=== PATIENT | female | born 1960 | race Caucasian/White ===

== ENCOUNTER 2024-08-16 12:56 | Outpatient (AMB) | payer MEDICARE, MEDICAID, SELFPAY ==
--- NOTE | 2024-08-16 13:07 | HO.SPINEOV ---
Intake Visit Reasons: LBP Intake Note: Ms. Bella is here today c/o low back pain. MRI done @ [facility] (brought disc). 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 She is a very nice 64-year-old female presents for evaluation of chronic low back pain. She has had the pain going back to 2003 and it has only gotten steadily worse over the years. She had thoracic symptoms for awhile but then it transitioned into her lower back radiating into her hips. Right now the main pain she has is located along her beltline radiating into her buttocks in her hips. She underwent numerous rounds of conservative management at your facility including physical therapy, epidural injections and then underwent trial of a Sprint stimulator. She had it in for number of weeks she tells me and she had quite good success with it. She was going to get a permanent 1 installed but apparently something happened, she is not sure if it was with insurance company or whatever but she is referred down to us for implantation of it according to the referral. PMH: She has history of hypertension, history of diabetes but tells me her A1c last year was in the mid 5s, history of macular degeneration, COPD, seems fairly low-grade because she is only using an inhaler once a day and does not need home oxygen. Unfortunately she continues to smoke. She has had cataract surgery, partial hysterectomy, tubal ligation. Social hx: She smokes a pack a day, she takes marijuana gummy at night to help with sleep and does not use any alcohol Medications: Losartan, amlodipine, metformin, Tylenol, ibuprofen, Trelegy Allergies: No known drug allergies Physical exam: She is awake alert oriented very hard time staying in 1 position, constantly changing positions leaning against the wall. Strength and reflexes are normal. Imaging review: Lumbar MRI done at [facility] in July of this year shows severely collapsed disc at L2-3 L3-4 and L4-5 with Modic endplate changes throughout. She has Modic type 3 changes at the lower levels and Modic type 1 at the upper. No significant central canal stenosis. Impression: 64-year-old female with chronic low back pain, has undergone conservative management as outlined above and was referred down to us for evaluation of back pain and possible consideration of a sprint procedure. Dr. Gusman does not do that procedure but are interventional pain colleagues are very familiar with it and do it regularly. I will refer up to Dr. Abad. Consideration should also be made for possible intracept procedure as I think she would be a good candidate. He also does that as well. Thank you for allowing us to care for your patient. The total time spent with this visit with this patient was 45 minutes reviewing history, physical exam, lumbar imaging review, and implementation of treatment plan or further diagnostic testing Juliocesar Gusman MD,PhD [facility] Orders: Orders XR lumbar spine 4V min Today M54.9 - Dorsalgia, unspecified Referrals Pain Management Referral M54.9 - Dorsalgia, unspecified Coding Level of Care Code New Pt Level 4 (16717) Diagnoses Back pain M54.9
--- OUTSIDE RECORDS SUMMARY | 2024-08-16 13:58 | XMS_ITS | Data Portability ---
Author Organization [place] - [facility], Allergy Address [address] [address] Care Team Providers [employer] Name Role Phone BENNY RAMIREZ Primary Care Provider [phone] Assessment No assessment recorded. Plan of Treatment Reminders Order Date Submit Date Provider Last Modified By Organization Details Last Modified Time Details Appointments Establish ed 30 2024 01:00P M JEANE Malagon MD Not available Not available Not available Lab None recorded. Referral None recorded. Procedures None recorded. Surgeries None recorded. Imaging None recorded. Medication Orders None recorded. Patient TargetsNo targets recorded. Patient InstructionsNo instructions recorded. Reason for Referral None Reported. Problems Name Problem SNOMED Code Status Onset Date Resolution Date Notes Provider Name and Address Organization Details Recorded Time Sensorine ural hearing loss of bilateral ears 170640933 Active 2022 Sensorine ural hearing loss, bilateral ; Note: Date Diagnosed : 07/04/2022 3:58 PM (H90.3) Not Available [facility] 4 02:14:02 Bilateral tinnitus 50384658340 02 Active 2022 Tinnitus, bilateral ; Note: Date Diagnosed : 07/04/2022 3:58 PM (H93.13) Not Available [facility] 4 02:13:45 Chronic hoarsenes s 84935203662 05 Active 2023 JEANE MITTAL MD [address] [place] [address], [place], [address] , [facility] - [facility] 4 15:44:28 Lilliana's edema 019350277 Active 2023 JEANE MITTAL MD [address] [place] [address],[place] [address], [place], [phone] , [facility] - [facility] 4 15:52:19 Smoker 25131174 Active 2023 JEANE MITTAL MD [address] [place] [address], [facility] [place], [address] , [facility] - [facility] 4 15:52:44 Problem Notes None recorded. Procedures Surgical History Date Name Laterality Status Provider Name and Address Organization Details Recorded Time 06/21/2024 FFL_RE completed JEANE MITTAL MD [address] [place] [address], [place], [address], [facility] - [facility] 06/21/2024 14:44:34 12/22/2023 FFL_RE completed JEANE MITTAL MD [address] [place] [address], [phone], [facility] 12/22/2023 15:52:06 Imaging Results None recorded. Procedure Notes None recorded. Medical Equipment None Reported. Allergies Allergen ID Allergen Name Allergen Category Reaction Reaction Severity Criticality Documentation Date Start Date Code Code System Note Provider Name and Address Organization Details Recorded Time 09272 Product containin g angiotens in-conver ting enzyme inhibitor (product) medicatio n Not available Not available Not available 07/29/2023 45698 009 SNOMED React ion: swell ing ankle s; Not Available [facility] 4 00:48:34 Medications Name Sig Start Date Stop Date Status Note LastModified by Organization Details LastModified Time metformin 500 mg tablet TAKE ONE TABLET BY MOUTH TWICE A DAY active Not Available Not Available No t Available prednisone 10 mg tablet TAKE 4 TABLETS 40 MG TOTAL) BY MOUTH DAILY WITH BREAKFAST FOR 2 DAYS, THEN 3 TABLETS 30 MG TOTAL) DAILY WITH BREAKFAST FOR 2 DAYS, THEN 2 active Not Available Not Available No t Available acetazolamide ER 500 mg capsule,exten ded release TAKE ONE CAPSULE BY MOUTH AT BEDTIME AND IN THE MORNING. active Not Available Not Available No t Available nicotine (polacrilex) [address] EACH 2 MG TOTAL) INSIDE CHEEK EVERY 30 THIRTY) MINUTES NEEDED FOR SMOKING CESSATION MAX 20 PIECES PER DAY) CHEW SLOWLY UNTIL I active Not Available Not Available No t Available ketorolac 0.5 % eye drops INSTILL ONE DROP INTO THE AFFECTED EYE 3 TIMES A DAY STARTING 2 DAYS BEFORE SURGERY active Not Available Not Available No t Available amlodipine 10 mg tablet TAKE ONE TABLET BY MOUTH EVERY DAY active Not Available Not Available No t Available losartan 25 mg tablet TAKE 1 TABLET BY MOUTH ONCE DAILY active Not Available Not Available No t Available nicotine 21 mg/[address] 1 PATCH ONTO THE SKIN DAILY IF INSOMNIA REMOVE AT BEDTIME active Not Available Not Available No t Available cefuroxime axetil 500 mg tablet TAKE ONE TABLET BY MOUTH TWICE A DAY FOR 2 DAYS active Not Available Not Available No t Available clotrimazole 1 % topical cream APPLY TO AFFECTED AREA S) TOPICALLY TWO TIMES A DAY active Not Available Not Available No t Available Ventolin HFA 90 mcg/actuation aerosol inhaler INHALE 2 PUFFS INTO THE LUNGS EVERY 4 HOURS NEEDED FOR WHEEZING OR FOR SHORTNESS OF BREATH active Not Available Not Available No t Available Advair HFA 230 mcg-21 mcg/actuation aerosol inhaler INHALE TWO PUFFS BY MOUTH TWICE A DAY active Not Available Not Available No t Available guaifenesin ER 600 mg tablet, extended release 12 hr TAKE TWO TABLETS BY MOUTH TWICE A DAY active Not Available Not Available No t Available Trelegy Ellipta 100 mcg-62.5 mcg-25 mcg powder for inhalation INHALE ONE PUFF BY MOUTH EVERY DAY active Not Available Not Available No t Available Vitals Date Recorded Body height Body mass index (BMI) Body weight Provider Name and Address Organization Details Last Updated DateTime 06/21/2024 152.4 cm 32 kg/m2 30457.15 [facility] 06/21/2024 14:27:06 Date Recorded Body height Body mass index (BMI) Body weight Provider Name and Address Organization Details Last Updated DateTime 12/22/2023 152.4 cm 32 kg/m2 41229.15 [facility] 12/22/2023 15:26:17 Social History None recorded. Functional Status None recorded. Mental Status None recorded. Family History Nothing Reported. Medical History No medical history recorded. Gynecological HistoryNo gynecological history recorded. Obstetrics History GPAL:G 0 P 0 0 0 0 Past Encounters Encounter ID Performer Location Encounter Start Date Encounter Closed Date Diagnosis/Indication Diagnosis SNOMED-CT Code Diagnosis ICD10 Code Diagnosis Note [id number] JEANE MITTAL MD [facility] on [address] [place] [address], [place] [address] 12/22/2023 15:02:17 12/22/2023 15:51:07 Chronic hoarseness 8087933429 105 R49.0 see below Lilliana's edema 083845624 J38.4 Laryngosco py was notable for Lilliana's edema. I discussed the associatio n with smoking. No concerning lesions. I discussed malignant degenerati on if she continues smoking. Will reassess in 6 months. Smoker 11785109 F17.200 discussed smoking cessation [id number] JEANE MITTAL MD [facility] on [address] [place] [address], [place] [address] 06/21/2024 14:21:47 06/21/2024 14:54:50 Chronic hoarseness 6095660652 105 R49.0 see below Lilliana's edema 034126196 J38.4 Laryngosco py was notable for Lilliana's edema. I discussed the associatio n with smoking. No concerning lesions. I discussed malignant degenerati on if she continues smoking. Will reassess in 6 months. Smoker 53279996 F17.200 discussed smoking cessation Health Concerns Section Related Observation LastModified by Organization Detai ls LastModified Time None Recorded Concern Status LastModified by Organization Details LastModified Time None Recorded Advance Directives Directive None Recorded Payers Insurance Date Sequence Insurance Name Policy Number Policy Davila Covered Member ID Davila Member ID Guarantor Name 06/23/2024 2 [place] [facility] Taylor Bella [id number] Taylor Bella 06/21/2024 1 [facility] (MEDICARE REPLACEMENT/A DVANTAGE - PPO) [id number] Taylor Bella [id number] Taylor Bella Notes Date Note Type Note Provider Name and Address Organization Details Recorded Time 12/22/2023 text/html She has a history of hoarseness. She is a heavy smoker. Her voice has been hoarse for several years. It is better than it used to be since she cut out red wine. She denies trouble breathing. Does have JUSTIN wears CPAP at night. Uses Trilogy for COPD. No throat pain. JEANE MITTAL MD [address] [place] [address], [phone], [facility] 12/22/2023 15:53:47 06/21/2024 text/html She has a history of hoarseness. She is a heavy smoker. She is trying to cut back. Her voice has been hoarse for several years. She denies changes since the last visit. She denies trouble breathing. Does have JUSTIN wears CPAP at night. Uses Trilogy for COPD. No throat pain. JEANE MITTAL MD [address] [place] [address] [address], [place], [phone], [facility] 06/21/2024 14:58:41 OBGyn Episode No OBEpisode recorded.
== END 2024-08-16 13:52 | disposition home or self-care (01) ==
LOC: HO.HNS 12:57
PROVIDERS: PCP Family Medicine; Visit Provider Physician Assistant
DX: M54.9 Dorsalgia, unspecified (principal)
CPT/HCPCS: 99204

== ENCOUNTER 2024-08-16 12:56 | Outpatient (REF) | payer MEDICARE, MEDICAID, SELFPAY ==
--- NOTE | ~2024-08-16 | XR_ITS ---
CLINICAL HISTORY: M54.9 - Dorsalgia, unspecified --- Additional Notes or Special Instructions: wilson darden p, lateral with flex ext views 4 views lumbar spine Comparison: None Findings: Dextroscoliosis. Multilevel degenerative changes of the lumbar spine with narrowing of the intervertebral disc space and osteophytes. No instability on the flexion and extension images. IMPRESSION: No acute findings. This document has been electronically signed by: Mars Triana MD on 08/17/2024 15:53:31
== END 2024-08-16 12:57 | disposition home or self-care (01) ==
LOC: HO.HOSX 12:56
PROVIDERS: PCP Family Medicine; Visit Provider Physician Assistant
DX: M54.50 Low back pain, unspecified (principal); G89.29 Other chronic pain
CPT/HCPCS: 72110; 99202

== ENCOUNTER → 2024-08-16 14:06 | Outpatient (BNV) | payer MEDICARE, MEDICAID, SELFPAY | PROVIDERS: PCP Family Medicine; Visit Provider Nuclear Medicine | DX: M54.9 Dorsalgia, unspecified (principal) | CPT/HCPCS: 72110 ==

== ENCOUNTER 2024-08-30 11:52 | Outpatient (AMB) | payer MEDICARE, MEDICAID, SELFPAY ==
[2024-08-30 11:54] VITALS: BP 155/77; PULSE 88; RESP 16; O2SAT 93; BMI 31.6
--- NOTE | 2024-08-30 11:54 | MHC.OFFVIS ---
Vital Signs 08/30/24 11:54 Height 5 ft Weight 162 lb BMI 31.6 BP 155/77 H Blood Pressure Location Lt brachial Position Sitting Respiration 16 Pulse 88 Pulse Source Pulse Oximeter Pulse Oximetry (%) 93 Oxygen Delivery Method Room Air Intake Visit Reasons: Dorsalgia Community Health Promoter Required: No Accompanied by: Self / Same As Patient Allergies No Known Allergies (No Known Allergies*) Allergy (Verified 08/30/24 11:58) HPI HPI Dorsalgia: Details: History of Present Illness The patient is a 64-year-old female presenting with management of chronic low back pain. The pain originated over 21 years ago and has intensified, particularly over the last two years. It is primarily located along the beltline and radiates into the buttocks and hips, more severely affecting the right side compared to the left, which also experiences a permanent numbness. Past interventions have provided limited relief, including physical therapy, epidural injections, and a Sprint stimulator. The condition affects the patient?s daily function, limiting her ability to conduct rn disease management and walk her dogs without subsequent exacerbation of pain. Secondary issues include spinal stenosis, lumbar disc degeneration, endplate edema, and arthritis, which are contributing to her pain presentation. Insurance considerations have altered her treatment pathways, leading to her current visit following her previous provider's cessation of procedures due to reimbursement issues. Pain Description - Pain onset: Over 21 years ago, worsening over the past two years. - Quality: Chronic, exacerbated with movement or prolonged activity. - Location: Lower back along the beltline, radiating to buttocks and hips. - Radiation: Primarily into buttocks and hips, more severe on the right side. - Exacerbating factors: Sitting for prolonged periods, sweeping, mopping, vacuuming, and walking. - Relieving factors: Previously episodic relief with Sprint stimulator. - Impact: Significant limitation in daily activities, such as rn disease management and walking. Physical Exam - Appears afebrile. - Alert and oriented. - Mood and affect appropriate. - Follows and participates in conversation appropriately. - Respiratory effort is unlabored. - Able to transition from sit to stand unassisted. - Limited lumbar ROM - Extensio/flexion both produce discomfort Results - MRI findings showing lumbar disc degeneration and endplate edema/modic changes. Pain Management - Affect: Pain has resulted in a reduction of ability to perform daily activities, causing distress. - Analgesia: Previous relief with Sprint stimulator, current pain level obscure but seen increase without treatment. - Adverse Effects: No specific adverse effects from prior Sprint stimulator were discussed. - Activities of Daily Living: Affected ability to engage in sweeping, mopping, and prolonged walking. - Aberrant Drug Related Behaviors: None reported or discussed. Physical Exam Vital Signs: Last Vital Signs Pulse 88 08/30/24 11:54 Resp 16 08/30/24 11:54 BP 155/77 H 08/30/24 11:54 Pulse Ox 93 08/30/24 11:54 Oxygen Delivery Method Room Air 08/30/24 11:54 BMI result Body Mass Index 31.6 Assessment & Plan Assessment & Plan (1) Chronic pain: Code(s): G89.29 - Other chronic pain Category: Medical (2) Lumbar spondylosis: Code(s): M47.816 - Spondylosis without myelopathy or radiculopathy, lumbar region Category: Medical Plan Plan - Proceed with obtaining insurance authorization for right L3 medial branch nerve stimulator for chronic low back pain; previously had excellent response in pain relief from PNS therapy for >1 year. Left side two weeks later. - Provide patient educational materials on endplate edema treatment. - Plan procedure scheduling post-insurance approval. - Monitor response to potential new therapies if current interventions become inadequate. Patient was informed and verbally consented to the use of an ambient scribe for clinic note documentation during this visit. Discussion Notes During the visit, I discussed with the patient the potential for using a Sprint stimulator once more for her chronic low back pain, given its previous success. We reviewed lumbar MRI results indicating disc degeneration and endplate edema, and discussed possible future interventions should symptoms persist or the Sprint procedure not offer lasting relief. I informed the patient about insurance authorization being a necessary step before proceeding and provided educational materials for another possible procedure targeting endplate edema. The patient was advised to remain optimistic about reattempting the Sprint procedure, and it was conveyed that insurance approval will propel scheduling. Patient Instructions - Await contact for insurance approval regarding the Sprint PNS stimulator procedure. - Review provided brochure on endplate edema treatment. - Avoid activities that exacerbate pain when possible. - Continue any previously advised pain management strategies until further scheduled treatment. - Contact us if there is any change in pain levels or new symptoms develop. Coding Level of Care Code New Pt Level 4 (73927) Diagnoses Chronic pain G89.29 Lumbar spondylosis M47.816
--- OUTSIDE RECORDS SUMMARY | 2024-08-30 13:25 | XMS_ITS | Data Portability ---
Author Organization [place] - 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 Plan of Treatment [...] Sensorine ural hearing loss of bilateral ears [id number] Active 2022 Sensorine ural hearing loss, bilateral ; Note: Date Diagnosed : 07/04/2022 3:58 PM (H90.3) Not Available [facility] 4 02:14:02 Bilateral tinnitus [id number] 02 Active 2022 Tinnitus, bilateral ; Note: Date Diagnosed : 07/04/2022 3:58 PM (H93.13) Not Available [facility] 4 02:13:45 Chronic hoarsenes s 35206118728 05 Active 2023 JEANE MITTAL MD [address] [place] [address],[place] [address], [place], [phone] , [facility] - [facility] 4 15:44:28 Lilliana's edema 299731481 Active 2023 JEANE MITTAL MD [address] [place] [address],[place] [address], [place], [phone] , [facility] - [facility] 4 15:52:19 Smoker 06853200 Active 2023 JEANE MITTAL MD [address] [place] [address], [place], [phone] , [facility] - [facility] 4 15:52:44 Problem Notes None recorded. Procedures Surgical History Date Name Laterality Status Provider Name and Address Organization Details Recorded Time 06/21/2024 FFL_RE completed JEANE MITTAL MD [address] [place] [address], [place], [phone], [facility] - [facility] 06/21/2024 14:44:34 12/22/2023 FFL_RE completed JEANE MITTAL MD [address] [place] [address], [phone], [facility] 12/22/2023 15:52:06 Imaging Results None recorded. Procedure Notes None recorded. Medical Equipment None Reported. Allergies Allergen ID Allergen Name Allergen Category Reaction Reaction Severity Criticality Documentation Date Start Date Code Code System Note Provider Name and Address Organization Details Recorded Time 50794 Product containin g angiotens in-conver ting enzyme inhibitor (product) medicatio n Not available Not available Not available 07/29/2023 55703 009 SNOMED React ion: swell ing ankle s; Not Available [facility] 4 00:48:34 Medications Name Sig Start Date [...] Updated DateTime 06/21/2024 152.4 cm 32 kg/m2 56690.15 [facility] 06/21/2024 14:27:06 Date Recorded Body height Body mass index (BMI) Body weight Provider Name and Address Organization Details Last Updated DateTime 12/22/2023 152.4 cm 32 kg/m2 96244.15 g [facility] 12/22/2023 15:26:17 Social History None recorded. Functional Status None recorded. Mental Status None recorded. Family History Nothing Reported. Medical History No medical history recorded. Gynecological HistoryNo gynecological history recorded. Obstetrics History GPAL:G 0 P 0 0 0 0 Past Encounters Encounter ID Performer Location Encounter Start Date Encounter Closed Date Diagnosis/Indication Diagnosis SNOMED-CT Code Diagnosis ICD10 Code Diagnosis Note [id number] JEANE MITTAL MD [facility], [facility] on [address] [place] [address], [place] [address] 12/22/2023 15:02:17 12/22/2023 15:51:07 Chronic hoarseness 7131895771 105 R49.0 see below Lilliana's edema 653578734 J38.4 Laryngosco py was notable for Lilliana's edema. I discussed the associatio n with smoking. No concerning lesions. I discussed malignant degenerati on if she continues smoking. Will reassess in 6 months. Smoker 56112138 F17.200 discussed smoking cessation [id number] JEANE MITTAL MD [facility], [facility] on [address] [place] [address], [place] [address] 06/21/2024 14:21:47 06/21/2024 14:54:50 Chronic hoarseness 4775513925 105 R49.0 see below Lilliana's edema 619771795 J38.4 Laryngosco py was notable for Lilliana's edema. I discussed the associatio n with smoking. No concerning lesions. I discussed malignant degenerati on if she continues smoking. Will reassess in 6 months. Smoker 21376105 F17.200 discussed smoking cessation Health Concerns Section Related Observation LastModified by Organization Detai ls LastModified Time None Recorded Concern Status LastModified by Organization Details LastModified Time None Recorded Advance Directives Directive None Recorded Payers Insurance Date Sequence Insurance Name Policy Number Policy Davila Covered Member ID Davila Member ID Guarantor Name 06/23/2024 2 [place] [facility] Taylor Bella [id number] Taylor Bella 06/21/2024 1 [facility] (MEDICARE REPLACEMENT/A DVANTAGE - PPO) [id number] Taylor Bella [id number] Taylor Bella Notes Date Note Type Note [...] COPD. No throat pain. JEANE MITTAL MD [address] [place] [address], [phone], [facility] - [facility] 12/22/2023 15:53:47 06/21/2024 text/html She has a history of hoarseness. She is a heavy smoker. She is trying to cut back. Her voice has been hoarse for several years. She denies changes since the last visit. She denies trouble breathing. Does have JUSTIN wears CPAP at night. Uses Trilogy for COPD. No throat pain. JEANE MITTAL MD [address] [place] [address] [address], [place], [phone], [facility] - [facility] 06/21/2024 14:58:41 OBGyn Episode No OBEpisode recorded.
== END 2024-08-30 12:56 | disposition home or self-care (01) ==
LOC: HO.PMC 11:53
PROVIDERS: PCP Family Medicine; Referring Provider Physician Assistant; Visit Provider Internal Medicine
DX: G89.29 Other chronic pain (principal); M47.816 Spondylosis without myelopathy or radiculopathy, lumbar region
CPT/HCPCS: 99204

== ENCOUNTER → 2024-08-30 11:52 | Outpatient (BNVA) | payer MEDICARE, MEDICAID, SELFPAY | PROVIDERS: PCP Family Medicine; Referring Provider Physician Assistant; Visit Provider Internal Medicine | DX: M47.816 Spondylosis without myelopathy or radiculopathy, lumbar region (principal); G89.29 Other chronic pain | CPT/HCPCS: 99202 ==

== ENCOUNTER 2024-10-14 06:30 | Outpatient (REF) | payer MEDICARE, MEDICAID, SELFPAY ==
--- NOTE | ~2024-10-14 | FL_ITS ---
EXAMINATION: FL GUIDANCE ONLY HISTORY: M47.816 - Spondylosis without myelopathy or radiculopathy, lumbar region COMPARISON: None available. TECHNIQUE: Fluoroscopy time: 0.2 minutes. Cumulative Dose: 7.68 mGy. DAP: 0.114 mGym2 Images: 3. FINDINGS: Fluoroscopic spot films of the lumbar spine demonstrate an electrode in place. FL/FL guidance in treatment room IMPRESSION: Fluoroscopy during procedure. Please see procedure report for additional information. Electronically signed by: Antolin Crabtree MD 10/14/2024 03:34 PM EDT
== END 2024-10-14 06:31 | disposition home or self-care (01) ==
LOC: CF 06:30
PROVIDERS: Visit Provider Internal Medicine
DX: M47.816 Spondylosis without myelopathy or radiculopathy, lumbar region (principal); G89.29 Other chronic pain
CPT/HCPCS: 64555; C1778; J2003

== ENCOUNTER 2024-10-14 13:04 | Outpatient (AMB) | payer MEDICARE, MEDICAID, SELFPAY ==
[2024-10-14 13:11] VITALS: BP 149/85; PULSE 96; RESP 16; O2SAT 97; BMI 31.6
--- NOTE | 2024-10-14 13:11 | A.OFFVIS_ITS ---
Vital Signs 10/14/24 13:11 10/14/24 14:55 Height 5 ft 5 ft Weight 162 lb 162 lb BMI 31.6 31.6 BP 149/85 H 145/86 H Blood Pressure Location Lt brachial Lt brachial Position Sitting Sitting Respiration 16 16 Pulse 96 74 Pulse Source Pulse Oximeter Pulse Oximeter Pulse Oximetry (%) 97 97 Oxygen Delivery Method Room Air Room Air Intake Visit Reasons: Left L3 Sprint Allergies No Known Allergies (No Known Allergies*) Allergy (Verified 08/30/24 11:58) HPI HPI Left L3 Sprint: Details: Patient presents for scheduled procedure. Denies any recent cough, cold, infection, fever or other significant changes in medical history since last office visit. Physical Exam Vital Signs: Last Vital Signs Pulse 74 10/14/24 14:55 Resp 16 10/14/24 14:55 BP 145/86 H 10/14/24 14:55 Pulse Ox 97 10/14/24 14:55 Oxygen Delivery Method Room Air 10/14/24 14:55 BMI result Body Mass Index 31.6 Office Procedures Details: Lumbar Medial Branch Nerve Stimulation Lead Placement, SPR (Sprint) System, Left L3 ? After the risks, benefits and alternatives were discussed with the patient and informed consent was obtained, patient was placed in the prone position and padded to foster comfort. The skin overlying the lumbosacral spine was prepped and draped in sterile fashion. Fluoroscopy was used to identify the spinous process and lamina in the center of the patient?s region of pain. After identifying and marking the intended target along the course of the medial branch nerve, the skin around the planned entry point and the subcutaneous t issues were injected with lidocaine 1%. An introducer needle and stimulating probe were assembled, inserted and advanced along the intended course of the medial branch nerve as it traverses the lamina medial and inferior to the zygapophyseal joint, taking care to maintain the proper depth of insertion as the introducer is advanced under fluoroscopic guidance. The introducer needle was delivered to a location in proximity to the nerve. Multiple stimulation parameters were used to deliver stimulation to the target medial branch nerve in concert with stimulating at multiple positions around the nerve. Nerve target acquisition was confirmed noting generation of paresthesias in the paravertebral regions corresponding to the level being stimulated. Various electrical parameter combinations were tested, and the lead location was adjusted (physically relocated) until the patient indicated paresthesia/muscle tension overlapping the distribution of the patient?s typical region of pain. The stimulating probe was removed from the introducer and a percutaneous lead was guided through the needle and delivered to a location in similar proximity to the nerve. Final location was verified with electrical stimulation and documented with fluoroscopy. The introducer needle was removed, and the exposed end of the percutaneous lead was attached to an external stimulator unit. Various electrical parameter combinations were again tested until the patient indicated paresthesia or muscle tension overlapping the distribution of the patient?s typical region of pain. After confirming that lead impedance was in the normal range, the external unit was detached, the needle was removed, and the lead was anchored at the skin. The lead was threaded into the connector block and electrical continuity and desired patient response was confirmed. The connector block was attached to the external stimulator unit. The site was covered with a sterile occlusive dressing. The patient was observed for stability of vital signs and comfort. Sprint PNS Device: Sprint PNS Device [id number] Percutaneous Peripheral Neuroelectrode Procedure: 98825 - Percutaneous Peripheral Neuroelectrode Procedure code (CPT) selection complete Office Meds lidocaine HCl 10 mg/mL (1 %) injection solution Performing Provider: Ashly Leung APRN, EMILY Performing Location: [facility] Administered by: Eric Abad MD on 10/19/24 15:41 Dose Route Admin Location Dispensed Lot Number Expiration Date [facility] Game Author 5 mL subcut 5 mL Total Dispensed Waste 5 mL 0 % Assessment & Plan Assessment & Plan (1) Chronic pain: Code(s): G89.29 - Other chronic pain Category: Medical (2) Lumbar spondylosis: Code(s): M47.816 - Spondylosis without myelopathy or radiculopathy, lumbar region Category: Medical Plan Patient is status post left L3 medial branch temporary nerve stimulator placement. Patient tolerated procedure well and was discharged home in stable condition with discharge instructions. All questions were answered. We will follow-up via telephone or in clinic to assess response to therapy. A follow-up appointment was made during today's visit. Orders: Orders AMB Sprint PNS 10/14/24 M47.816 - Spondylosis without myelopathy or radiculopathy, lumbar region FL guidance in treatment room 10/14/24 M47.816 - Spondylosis without myelopathy or radiculopathy, lumbar region Coding Level of Care Code Procedure Only Diagnoses Chronic pain G89.29 Lumbar spondylosis M47.816 CPT Codes Sprint PNS - Sprint PNS Device: Sprint PNS Device ([id number]) Sprint PNS - SPRINT: 08711 - Percutaneous Peripheral Neuroelectrode ([id number]) Implantable Device Implantable Device Implantable Devices Qty Game Author Implant Date Expiration Date Analgesic PENS system 1 [employer] 10/14/24
[2024-10-14 14:55] VITALS: BP 145/86; PULSE 74; RESP 16; O2SAT 97; BMI 31.6
== END 2024-10-14 15:18 | disposition home or self-care (01) ==
LOC: HO.PMCPRC 13:04
PROVIDERS: PCP Family Medicine; Visit Provider Internal Medicine
DX: G89.29 Other chronic pain (principal); M47.816 Spondylosis without myelopathy or radiculopathy, lumbar region
CPT/HCPCS: 64555

== ENCOUNTER 2024-10-20 10:27 | Outpatient (AMB) | payer MEDICARE, MEDICAID, SELFPAY ==
--- NOTE | 2024-10-20 10:28 | MHC.OFFVIS ---
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 She reports mixed results with the device, noting some reduction in pain but still experiencing discomfort, particularly in the mornings. The patient acknowledges that it is still early in the treatment process and remains hopeful for further improvement. Pain Description - Onset: Post-procedure - Quality: Mixed results with some reduction in pain - Timing: Particularly noticeable in the mornings - Exacerbating factors: Early stage of treatment - Relieving factors: Hope for improvement over time Physical Exam - Musculoskeletal: Lead insertion site intact Results Pain Management - Affect: Patient remains hopeful for improvement - Analgesia: Mixed results with some reduction in pain - Activities of Daily Living: Pain noticeable in the mornings Physical Exam Vital Signs: Last Vital Signs Pulse 94 10/20/24 10:30 Resp 15 10/20/24 10:30 BP 138/78 10/20/24 10:30 Pulse Ox 95 10/20/24 10:30 Oxygen Delivery Method Room Air 10/20/24 10:30 BMI result Body Mass Index 32.6 Assessment & Plan Assessment & Plan (1) Chronic pain: Code(s): G89.29 - Other chronic pain Category: Medical (2) Lumbar spondylosis: Code(s): M47.816 - Spondylosis without myelopathy or radiculopathy, lumbar region Category: Medical Plan Plan - Follow-up planned for right-sided placement next week. Patient was informed and verbally consented to the use of an ambient scribe for clinic note documentation during this visit. Discussion Notes I discussed with the patient the expected outcomes of the left L3 medial branch stimulator and the potential for improvement over time. We also talked about the upcoming right-sided placement and its anticipated benefits. Patient Instructions - Monitor pain levels and note any changes. - Follow up next week for right-sided placement. Coding Level of Care Code Est Pt Level 3 (26173) Diagnoses Chronic pain G89.29 Lumbar spondylosis M47.816
[2024-10-20 10:30] VITALS: BP 138/78; PULSE 94; RESP 15; O2SAT 95; BMI 32.6
== END 2024-10-20 10:52 | disposition home or self-care (01) ==
LOC: HO.PMC 10:27
PROVIDERS: PCP Family Medicine; Visit Provider Internal Medicine
DX: G89.29 Other chronic pain (principal); M47.816 Spondylosis without myelopathy or radiculopathy, lumbar region
CPT/HCPCS: 99024

== ENCOUNTER → 2024-10-20 10:27 | Outpatient (BNVA) | payer MEDICARE, MEDICAID, SELFPAY | PROVIDERS: PCP Family Medicine; Visit Provider Internal Medicine | DX: Z48.811 Encounter for surgical aftercare following surgery on the nervous system (principal); Z96.82 Presence of neurostimulator; G89.29 Other chronic pain; M47.816 Spondylosis without myelopathy or radiculopathy, lumbar region | CPT/HCPCS: 99212 ==

== ENCOUNTER 2024-10-28 07:36 | Outpatient (REF) | payer MEDICARE, OTHER, SELFPAY ==
--- NOTE | ~2024-10-28 | FL_ITS ---
EXAMINATION: FL GUIDANCE ONLY HISTORY: M47.816 - Spondylosis without myelopathy or radiculopathy, lumbar region COMPARISON: None available. TECHNIQUE: Fluoroscopy time: 0.3 minutes. Cumulative Dose: 4.01 mGy. DAP: 0.534 mGym2 Images: 2. FINDINGS: Fluoroscopic spot films of the lumbar spine demonstrate electrodes in place bilaterally. FL/FL guidance in treatment room IMPRESSION: Fluoroscopy during procedure. Please see procedure report for additional information. Electronically signed by: Antolin Crabtree MD 10/28/2024 03:45 PM EDT
== END 2024-10-28 07:37 | disposition home or self-care (01) ==
LOC: CF 07:36
PROVIDERS: Visit Provider Internal Medicine
DX: M47.816 Spondylosis without myelopathy or radiculopathy, lumbar region (principal); M54.9 Dorsalgia, unspecified; G89.29 Other chronic pain
CPT/HCPCS: 64555; 64590; C1778; J2003

== ENCOUNTER 2024-10-28 12:55 | Outpatient (AMB) | payer MEDICARE, MEDICAID, SELFPAY ==
--- NOTE | 2024-10-28 13:00 | A.OFFVIS_ITS ---
Vital Signs 10/28/24 13:06 10/28/24 13:37 Height 5 ft Weight 167 lb BMI 32.6 BP 140/79 H 152/79 H Blood Pressure Location Lt brachial Lt brachial Position Sitting Sitting Respiration 16 16 Pulse 90 83 Pulse Source Pulse Oximeter Pulse Oximeter Pulse Oximetry (%) 93 98 Oxygen Delivery Method Room Air Room Air Intake Visit Reasons: Right L3 Sprint Allergies No Known Allergies (No Known Allergies*) Allergy (Verified 10/20/24 10:33) HPI HPI Right L3 Sprint: Details: Patient presents for scheduled procedure. Denies any recent cough, cold, infection, fever or other significant changes in medical history since last office visit. Physical Exam Vital Signs: Last Vital Signs Pulse 83 10/28/24 13:37 Resp 16 10/28/24 13:37 BP 152/79 H 10/28/24 13:37 Pulse Ox 98 10/28/24 13:37 Oxygen Delivery Method Room Air 10/28/24 13:37 BMI result Body Mass Index 32.6 Office Procedures Details: Lumbar Medial Branch Nerve Stimulation Lead Placement, SPR (Sprint) System, Right L5 ? After the risks, benefits and alternatives were discussed with the patient and informed consent was obtained, patient was placed in the prone position and padded to foster comfort. The skin overlying the lumbosacral spine was prepped and draped in sterile fashion. Fluoroscopy was used to identify the spinous process and lamina in the center of the patient?s region of pain. After identifying and marking the intended target along the course of the medial branch nerve, the skin around the planned entry point and the subcutaneous tissues were injected with lidocaine 1%. An introducer needle and stimulating probe were assembled, inserted and advanced along the intended course of the medial branch nerve as it traverses the lamina medial and inferior to the zygapophyseal joint, taking care to maintain the proper depth of insertion as the introducer is advanced under fluoroscopic guidance. The introducer needle was delivered to a location in proximity to the nerve. Multiple stimulation parameters were used to deliver stimulation to the target medial branch nerve in concert with stimulating at multiple positions around the nerve. Nerve target acquisition was confirmed noting generation of paresthesias in the paravertebral regions corresponding to the level being stimulated. Various electrical parameter combinations were tested, and the lead location was adjusted (physically relocated) until the patient indicated paresthesia/muscle tension overlapping the distribution of the patient?s typical region of pain. The stimulating probe was removed from the introducer and a percutaneous lead was guided through the needle and delivered to a location in similar proximity to the nerve. Final location was verified with electrical stimulation and documented with fluoroscopy. The introducer needle was removed, and the exposed end of the percutaneous lead was attached to an external stimulator unit. Various electrical parameter comb inations were again tested until the patient indicated paresthesia or muscle tension overlapping the distribution of the patient?s typical region of pain. After confirming that lead impedance was in the normal range, the external unit was detached, the needle was removed, and the lead was anchored at the skin. The lead was threaded into the connector block and electrical continuity and desired patient response was confirmed. The connector block was attached to the external stimulator unit. The site was covered with a sterile occlusive dressing. The patient was observed for stability of vital signs and comfort. Sprint PNS Device: Sprint PNS Device [id number] Percutaneous Peripheral Neuroelectrode Procedure: 12341 - Percutaneous Peripheral Neuroelectrode Procedure code (CPT) selection complete Office Meds lidocaine HCl 10 mg/mL (1 %) injection solution Performing Provider: Eric Abad MD Performing Location: [facility] Administered by: Eric Abad MD on 10/28/24 13:00 Dose Route Admin Location Dispensed Lot Number Expiration Date [facility] Yard Hand 5 mL subcut 5 mL Total Dispensed Waste 5 mL 0 % Assessment & Plan Assessment & Plan (1) Chronic pain: Code(s): G89.29 - Other chronic pain Category: Medical (2) Lumbar spondylosis: Code(s): M47.816 - Spondylosis without myelopathy or radiculopathy, lumbar region Category: Medical Plan Patient is status post right L3 medial branch temporary nerve stimulator placement. Patient tolerated procedure well and was discharged home in stable condition with discharge instructions. All questions were answered. We will follow-up via telephone or in clinic to assess response to therapy. A follow-up appointment was made during today's visit. Orders: Orders FL guidance in treatment room Today M47.816 - Spondylosis without myelopathy or radiculopathy, lumbar region, M54.9 - Dorsalgia, unspecified AMB Sprint PNS Today G89.29 - Other chronic pain, M47.816 - Spondylosis without myelopathy or radiculopathy, lumbar region Coding Level of Care Code Procedure Only Diagnoses Chronic pain G89.29 Lumbar spondylosis M47.816 CPT Codes Sprint PNS - Sprint PNS Device: Sprint PNS Device ([id number]) Sprint PNS - SPRINT: 83868 - Percutaneous Peripheral Neuroelectrode ([id number]) Implantable Device Implantable Device Implantable Devices Q[employer] Hand Implant Date Expiration Date Analgesic PENS system 1 [employer] 10/14/24 Analgesic PENS system 1 [employer] 10/28/24
[2024-10-28 13:06] VITALS: BP 140/79; PULSE 90; RESP 16; O2SAT 93; BMI 32.6
[2024-10-28 13:37] VITALS: BP 152/79; PULSE 83; RESP 16; O2SAT 98
== END 2024-10-28 13:43 | disposition home or self-care (01) ==
LOC: HO.PMCPRC 12:55
PROVIDERS: PCP Family Medicine; Visit Provider Internal Medicine
DX: M47.816 Spondylosis without myelopathy or radiculopathy, lumbar region (principal); G89.29 Other chronic pain
CPT/HCPCS: 64555; 64590

== ENCOUNTER 2024-11-10 10:20 | Outpatient (AMB) | payer MEDICARE, MEDICAID, SELFPAY ==
--- NOTE | 2024-11-10 10:44 | A.OFFVIS_ITS ---
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 The low back pain worsens by the end of the day but shows improvement after 12 hours of rest. The pain is characterized as an ache or soreness, indicating potential overstimulation from the nerve stimulator. The patient has been managing the stimulator settings, initially at 65, with recommendations to lower it to 55 or 50 if soreness persists. Further instructions include contacting the clinic if soreness continues. Pain Description - Onset and Timing: Pain worsens by the end of the day but improves after 12 hours of rest. - Quality and Character: Described as an ache or soreness. - Exacerbating Factors: Potential overstimulation from the nerve stimulator. - Relieving Factors: Adjusting the stimulator settings and rest. Physical Exam - Examination Site: Clean and intact Pain Management - Analgesia: Adjusting nerve stimulator settings to manage pain levels. - Activities of Daily Living: Pain worsens by the end of the day, impacting daily activities. Physical Exam Vital Signs: Last Vital Signs Pulse 86 11/10/24 10:46 Resp 15 11/10/24 10:46 BP 115/74 11/10/24 10:46 Pulse Ox 95 11/10/24 10:46 Oxygen Delivery Method Room Air 11/10/24 10:46 BMI result Body Mass Index 32.2 Assessment & Plan Assessment & Plan (1) Lumbar spondylosis: Code(s): M47.816 - Spondylosis without myelopathy or radiculopathy, lumbar region Category: Medical (2) Chronic pain: Code(s): G89.29 - Other chronic pain Category: Medical Plan Plan Patient was informed and verbally consented to the use of an ambient scribe for clinic note documentation during this visit. 1. Low Back Pain - Adjust nerve stimulator settings to 55 or 50 if soreness persists. - Contact clinic if soreness continues for further guidance. Discussion Notes During the visit, we discussed the management of the patient's low back pain with the use of a nerve stimulator. The patient was advised to adjust the stimulator settings to alleviate soreness and to contact the clinic if symptoms persist. Patient Instructions - Adjust the nerve stimulator settings to 55 or 50 if soreness persists. - Contact the clinic if soreness continues for further guidance. Coding Level of Care Code Est Pt Level 3 (97719) Diagnoses Lumbar spondylosis M47.816 Chronic pain G89.29
[2024-11-10 10:46] VITALS: BP 115/74; PULSE 86; RESP 15; O2SAT 95; BMI 32.2
== END 2024-11-10 11:58 | disposition home or self-care (01) ==
LOC: HO.PMC 10:21
PROVIDERS: PCP Family Medicine; Visit Provider Internal Medicine
DX: M47.816 Spondylosis without myelopathy or radiculopathy, lumbar region (principal); G89.29 Other chronic pain
CPT/HCPCS: 99213

== ENCOUNTER → 2024-11-10 10:20 | Outpatient (BNVA) | payer MEDICARE, MEDICAID, SELFPAY | PROVIDERS: PCP Family Medicine; Visit Provider Internal Medicine | DX: Z48.811 Encounter for surgical aftercare following surgery on the nervous system (principal); Z96.82 Presence of neurostimulator; G89.29 Other chronic pain; M47.816 Spondylosis without myelopathy or radiculopathy, lumbar region | CPT/HCPCS: 99212 ==

== ENCOUNTER 2024-12-08 10:52 | Outpatient (AMB) | payer MEDICARE, MEDICAID, SELFPAY ==
[2024-12-08 11:06] VITALS: BP 140/66; PULSE 65; RESP 16; O2SAT 96; BMI 51.7
--- NOTE | 2024-12-08 11:06 | A.OFFVIS_ITS ---
Vital Signs 12/08/24 11:06 Height 5 ft Weight 265 lb BMI 51.7 BP 140/66 H Blood Pressure Location Lt brachial Position Sitting Respiration 16 Pulse 65 Pulse Source Pulse Oximeter Pulse Oximetry (%) 96 Oxygen Delivery Method Room Air Intake Visit Reasons: Left Sprint removal Intake Note: Left sprint lead removed, intact including the tip Allergies No Known Allergies (No Known Allergies*) Allergy (Verified 12/08/24 11:12) Medication List - Last Reconciled 12/08/24 by Julisa Diane LPN acetaminophen 500 mg PO Q6H PRN amlodipine 10 mg PO DAILY clotrimazole 1% appl topical dluhwdiusjs-ovqjzforr-fcpybjgg 100-62.5-25 mcg (Trelegy Ellipta) 1 ea inhalation DAILY ibuprofen 800 mg PO Q8H PRN losartan 25 mg PO DAILY metformin 500 mg PO BID HPI HPI Left Sprint removal: Details: History of Present Illness The patient is a 64-year-old female presenting with chronic pain management. The patient reports that the intensity of her pain has decreased since the last visit after adjusting her treatment regimen, although she acknowledges that complete resolution is unlikely. She describes the pain as tolerable at present, despite having experienced significant life stressors recently, including the l oss of her pet and her 's health issues. The patient also reports a history of back pain, which she anticipates will return with increased severity after her current treatment concludes. She e xpresses interest in exploring further treatment options, such as the Intracept procedure, which involves nerve ablation to manage pain. Additionally, the patient has been diagnosed with breast cancer, which requires surgical intervention and subsequent supportive care. She is concerned about the potential for post-surgical nerve pain and is considering different types of supportive garments to alleviate discomfort. Pain Description - Onset and Timing: Pain intensity has decreased since the last visit. - Quality and Character: Pain is described as tolerable. - Exacerbating Factors: Life stressors such as loss of a pet and 's health issues. - Relieving Factors: Adjustments in treatment regimen. Physical Exam - Lead removed with tip intact. Site clean and dry. Results Pain Management - Affect: The patient is coping with significant life stressors, including the loss of her pet and her 's health issues. - Analgesia: Pain intensity has decreased with current treatment adjustments. - Activities of Daily Living: Pain is currently at a tolerable level, allowing for daily functioning. Physical Exam Vital Signs: Last Vital Signs Pulse 65 12/08/24 11:06 Resp 16 12/08/24 11:06 BP 140/66 H 12/08/24 11:06 Pulse Ox 96 12/08/24 11:06 Oxygen Delivery Method Room Air 12/08/24 11:06 BMI result Body Mass Index 51.7 Assessment & Plan Assessment & Plan (1) Chronic pain: Code(s): G89.29 - Other chronic pain Category: Medical (2) Lumbar spondylosis: Code(s): M47.816 - Spondylosis without myelopathy or radiculopathy, lumbar region Category: Medical Plan Plan Patient was informed and verbally consented to the use of an ambient scribe for clinic note documentation during this visit. 1. Chronic Pain - Continue current pain management regimen with adjustments as needed. - Consider Intracept procedure for long-term pain relief. 2. Breast Cancer - Plan for surgical intervention and supportive care post-surgery. - Discuss options for managing post-surgical nerve pain. 3. Back Pain - Monitor for recurrence of back pain post-treatment. - Evaluate suitability for Intracept procedure. Discussion Notes During the consultation, we discussed the patient's chronic pain management and the potential benefits of the Intracept procedure, which involves nerve ablation for long-term relief. We also addressed the patient's recent breast cancer diagnosis, outlining the need for surgical intervention and supportive care, while considering options for managing post-surgical nerve pain. Follow-up was scheduled to reassess pain management strategies and evaluate the patient's response to ongoing treatments. Patient Instructions - Continue with current pain management regimen and report any changes in pain levels. - Consider discussing the Intracept procedure with your healthcare provider for potential long-term relief. - Prepare for upcoming surgical intervention for breast cancer and follow post- operative care instructions. - Schedule a follow-up appointment to reassess pain management and treatment progress. Coding Level of Care Code Est Pt Level 3 (46166) Diagnoses Chronic pain G89.29 Lumbar spondylosis M47.816
== END 2024-12-08 11:33 | disposition home or self-care (01) ==
LOC: HO.PMC 10:53
PROVIDERS: PCP Family Medicine; Visit Provider Internal Medicine
DX: G89.29 Other chronic pain (principal); M47.816 Spondylosis without myelopathy or radiculopathy, lumbar region
CPT/HCPCS: 99213

== ENCOUNTER → 2024-12-08 10:52 | Outpatient (BNVA) | payer MEDICARE, MEDICAID, SELFPAY | PROVIDERS: PCP Family Medicine; Visit Provider Internal Medicine | DX: M47.816 Spondylosis without myelopathy or radiculopathy, lumbar region (principal); G89.29 Other chronic pain | CPT/HCPCS: 99212 ==

== ENCOUNTER 2024-12-22 10:55 | Outpatient (AMB) | payer MEDICARE, MEDICAID, SELFPAY ==
--- NOTE | 2024-12-22 11:00 | A.OFFVIS_ITS ---
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 The back pain is described as not too bad but worsens by the end of the day. The patient experiences limited nerve pain and some discomfort in the groin area. Physical therapy has been attempted but increased the pain, leading to a preference for aquatic therapy. The patient finds relief in water activities, which help alleviate pressure on the discs. Pain Description - Onset: Pain worsens by the end of the day - Quality: Limited nerve pain - Location: Back and groin - Exacerbating factors: Physical therapy increased pain - Relieving factors: Aquatic therapy alleviates pressure on discs Physical Exam - Lead removed with tip intact. Results Pain Management - Affect: Pain impacts daily activities, worsens by end of day - Analgesia: No specific medications discussed - Adverse Effects: None discussed - Activities of Daily Living: Pain affects ability to perform physical therapy, prefers aquatic therapy - Aberrant Drug Related Behaviors: None discussed Physical Exam Vital Signs: Last Vital Signs Pulse 68 12/22/24 11:01 Resp 16 12/22/24 11:01 BP 130/68 12/22/24 11:01 Pulse Ox 96 12/22/24 11:01 Oxygen Delivery Method Room Air 12/22/24 11:01 BMI result Body Mass Index 32.2 Assessment & Plan Assessment & Plan (1) Lumbar spondylosis: Code(s): M47.816 - Spondylosis without myelopathy or radiculopathy, lumbar region Category: Medical (2) Chronic pain: Code(s): G89.29 - Other chronic pain Category: Medical Plan Plan Patient was informed and verbally consented to the use of an ambient scribe for clinic note documentation during this visit. 1. Back Pain - Plan includes removal of the right-sided Sprint device. - Recommendation for aquatic therapy to alleviate pressure on discs. Discussion Notes The patient and I discussed the removal of the right-sided Sprint device as part of the management plan for her back pain. We also talked about the benefits of aquatic therapy in reducing pressure on the spinal discs, which could help alleviate her symptoms. Patient Instructions - Follow up with aquatic therapy sessions to help manage back pain. - Monitor for any changes in pain levels and report if symptoms worsen. - Schedule a follow-up appointment after the removal of the Sprint device. Coding Level of Care Code Est Pt Level 3 (84952) Diagnoses Lumbar spondylosis M47.816 Chronic pain G89.29
[2024-12-22 11:01] VITALS: BP 130/68; PULSE 68; RESP 16; O2SAT 96; BMI 32.2
== END 2024-12-22 11:40 | disposition home or self-care (01) ==
LOC: HO.PMC 10:55
PROVIDERS: PCP Family Medicine; Visit Provider Internal Medicine
DX: M47.816 Spondylosis without myelopathy or radiculopathy, lumbar region (principal); G89.29 Other chronic pain
CPT/HCPCS: 99213

== ENCOUNTER → 2024-12-22 10:55 | Outpatient (BNVA) | payer MEDICARE, MEDICAID, SELFPAY | PROVIDERS: PCP Family Medicine; Visit Provider Internal Medicine | DX: M47.816 Spondylosis without myelopathy or radiculopathy, lumbar region (principal); G89.29 Other chronic pain | CPT/HCPCS: 99212 ==